=== PATIENT | male | born 2000 | race Caucasian/White ===

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

== ENCOUNTER 2022-02-16 17:51 | Emergency (ER) | payer SELFPAY ==
[~2022-02-16] VITALS: Ht 167.6 cm; Wt 70.4 kg
[2022-02-16 17:51] VITALS: BP 110/57
[2022-02-17] MEDS ORDERED: ONDA4TAB6 PO ×2 (10:44→10:54)
[2022-02-17] MEDS ORDERED: OMEP40CA4 PO ×2 (10:44→10:54)
== END 2022-02-16 20:42 | disposition left against medical advice (07) ==
LOC: M ED 17:51
DX: Z53.21 Procedure and treatment not carried out due to patient leaving prior to being seen by health care provider (principal)

== ENCOUNTER 2022-02-17 06:58 | Emergency (ER) | payer OTHER, SELFPAY ==
[~2022-02-17] VITALS: Ht 167.6 cm; Wt 68.2 kg
[2022-02-17] MEDS ORDERED: ONDANSETRON 4MG/2ML VIAL IV ONE (07:35)
[2022-02-17] MEDS ORDERED: NS 1,000 ML IV ONE (07:35)
[2022-02-17] MEDS ORDERED: PANTOPRAZOLE 40MG VIAL IV ONE (07:35)
[2022-02-17 07:53] LABS: BASO # 0.1 10^3/uL (0.0-0.2); BASO % 0.9 % (0.0-1.0); EOS # 0.1 10^3/uL (0.0-0.5); EOS % 1.6 % (0.0-3.0); HEMATOCRIT 45.1 % (42.0-52.0); HEMOGLOBIN 15.1 g/dl (13.5-17.5); LYMPH # 1.4 10^3/uL (1.5-5.0); LYMPH % 24.5 % (24.0-44.0); MEAN CORPUSCULAR HEMOGLOBIN 31.7 pg (27.0-33.0); MEAN CORPUSCULAR HGB CONC 33.5 g/dl (32.0-36.5); MEAN CORPUSCULAR VOLUME 94.5 fl (80.0-96.0); MONO # 0.5 10^3/uL (0.0-0.8); MONO % 8.5 % (2.0-8.0); NEUTROPHILS # 3.6 10^3/uL (1.5-8.5); NEUTROPHILS % 64.3 % (36.0-66.0); PLATELET COUNT, AUTOMATED 296 10^3/uL (150-450); RED BLOOD COUNT 4.77 10^6/uL (4.30-6.10); WHITE BLOOD COUNT 5.6 10^3/uL (4.0-10.0)
[2022-02-17 08:08] LABS: ALBUMIN 4.2 GM/DL (3.2-5.2); ALT/SGPT 19 U/L (12-78); BILIRUBIN,DIRECT 0.3 MG/DL (0.0-0.2); BLOOD UREA NITROGEN 13 MG/DL (7-18); CALCIUM LEVEL 9.6 MG/DL (8.5-10.1); CARBON DIOXIDE LEVEL 28 MEQ/L (21-32); CHLORIDE LEVEL 109 MEQ/L (98-107); CREATININE FOR GFR 1.13 MG/DL (0.70-1.30); GLUCOSE, FASTING 78 MG/DL (70-100); LIPASE 63 U/L (73-393); POTASSIUM SERUM 4.4 MEQ/L (3.5-5.1); SODIUM LEVEL 142 MEQ/L (136-145); TOTAL PROTEIN 7.8 GM/DL (6.4-8.2)
[2022-02-17] MEDS ORDERED: ISOVUE-370 76% 100ML VIAL As Ordered ONE (08:21)
[2022-02-17] MEDS ORDERED: OMEP40CA4 PO ×2 (10:44→10:54)
[2022-02-17] MEDS ORDERED: ONDA4TAB6 PO ×2 (10:44→10:54)
[2022-02-17 10:53] VITALS: BP 130/89
[2022-02-18] MEDS ORDERED: REGL10TA6 PO (09:49)
[2022-02-18] MEDS ORDERED: CARA1TAB6 PO (09:50)
== END 2022-02-17 10:58 | disposition home or self-care (01) ==
LOC: M ED 06:58
DX: K21.9 Gastro-esophageal reflux disease without esophagitis (principal); Z77.098 Contact with and (suspected) exposure to other hazardous, chiefly nonmedicinal, chemicals
CPT/HCPCS: 74177; 80048; 80076; 83690; 85025; 96361; 96374; 96375; 99284; C9113; J2405; Q9967

== ENCOUNTER 2022-02-18 05:22 | Emergency (ER) | payer OTHER ==
[~2022-02-18] VITALS: Ht 167.6 cm; Wt 67.9 kg
[~2022-02-18 05:22] MED LIST: OMEP40CA4 PO; ONDA4TAB6 PO
[2022-02-18] MEDS ORDERED: NS 1,000 ML IV ONE (06:20)
[2022-02-18] MEDS ORDERED: FAMOTIDINE IV BAG 20 MG in IV 1 EA IV ONE (06:20)
[2022-02-18] MEDS ORDERED: PANTOPRAZOLE 40MG VIAL IV ONE (06:20)
[2022-02-18] MEDS ORDERED: PROMETHAZINE 25MG/ML 1ML VIAL IV ONE (06:20)
[2022-02-18 06:51] LABS: BASO # 0.1 10^3/uL (0.0-0.2); BASO % 0.5 % (0.0-1.0); EOS # 0.1 10^3/uL (0.0-0.5); EOS % 0.6 % (0.0-3.0); HEMOGLOBIN 15.5 g/dl (13.5-17.5); LYMPH # 1.5 10^3/uL (1.5-5.0); LYMPH % 11.7 % (24.0-44.0); MEAN CORPUSCULAR HGB CONC 34.4 g/dl (32.0-36.5); MONO # 0.7 10^3/uL (0.0-0.8); MONO % 5.3 % (2.0-8.0); NEUTROPHILS # 10.4 10^3/uL (1.5-8.5); NEUTROPHILS % 81.7 % (36.0-66.0); PLATELET COUNT, AUTOMATED 311 10^3/uL (150-450); RED BLOOD COUNT 4.84 10^6/uL (4.30-6.10); WHITE BLOOD COUNT 12.8 10^3/uL (4.0-10.0)
[2022-02-18 07:01] LABS: INR 1.06; PROTHROMBIN TIME 14.2 SECONDS (12.7-14.5)
[2022-02-18 07:02] LABS: PARTIAL THROMBOPLASTIN TIME 27.1 SECONDS (25.9-37.0)
[2022-02-18 07:07] LABS: ALBUMIN 4.5 GM/DL (3.2-5.2); ALT/SGPT 25 U/L (12-78); BILIRUBIN,DIRECT 0.3 MG/DL (0.0-0.2); BILIRUBIN,TOTAL 1.1 MG/DL (0.2-1.0); BLOOD UREA NITROGEN 12 MG/DL (7-18); CALCIUM LEVEL 9.8 MG/DL (8.5-10.1); CARBON DIOXIDE LEVEL 27 MEQ/L (21-32); CHLORIDE LEVEL 108 MEQ/L (98-107); CREATININE FOR GFR 1.26 MG/DL (0.70-1.30); GLUCOSE, FASTING 84 MG/DL (70-100); LIPASE 215 U/L (73-393); POTASSIUM SERUM 3.9 MEQ/L (3.5-5.1); SODIUM LEVEL 141 MEQ/L (136-145); TOTAL PROTEIN 8.1 GM/DL (6.4-8.2)
[2022-02-18] MEDS ORDERED: METOCLOPRAMIDE INJ 10MG/2ML VIAL (J2765 PER 1) IV ONE (08:55)
[2022-02-18] MEDS ORDERED: REGL10TA6 PO (09:49)
[2022-02-18] MEDS ORDERED: SUCRALFATE SUSP 1GM/10ML UD PO ONE (09:50)
[2022-02-18] MEDS ORDERED: CARA1TAB6 PO (09:50)
[2022-02-18 10:08] LABS: AMPHETAMINES LEVEL URINE NEGATIVE (NEGATIVE); BARBITURATES URINE NEGATIVE (NEGATIVE); BENZODIAZEPINES URINE NEGATIVE (NEGATIVE); CANNABINOIDS URINE POSITIVE (NEGATIVE); COCAINE METABOLITE URINE NEGATIVE (NEGATIVE); METHADONE URINE NEGATIVE (NEGATIVE); OPIATES URINE NEGATIVE (NEGATIVE); PHENCYCLIDINE URINE NEGATIVE (NEGATIVE)
[2022-02-18 11:09] VITALS: BP 137/70
== END 2022-02-18 11:12 | disposition home or self-care (01) ==
LOC: M ED 05:22
DX: K29.70 Gastritis, unspecified, without bleeding (principal)
CPT/HCPCS: 80048; 80076; 80307; 83690; 85025; 85610; 85730; 86850; 86900; 86901; 93041; 96361; 96365; 99284; C9113; J2550; J2765

== ENCOUNTER 2022-03-13 06:15 | Emergency (ER) | payer OTHER ==
[~2022-03-13] VITALS: Ht 167.6 cm; Wt 61.4 kg
[~2022-03-13 06:15] MED LIST changes: +CARA1TAB6 PO; +REGL10TA6 PO
[2022-03-13] MEDS ORDERED: NS 1,000 ML IV ONE (07:50)
[2022-03-13 08:31] LABS: BASO # 0.1 10^3/uL (0.0-0.2); BASO % 0.8 % (0.0-1.0); EOS % 0.5 % (0.0-3.0); HEMATOCRIT 42.5 % (42.0-52.0); HEMOGLOBIN 14.3 g/dl (13.5-17.5); LYMPH # 1.5 10^3/uL (1.5-5.0); LYMPH % 22.1 % (24.0-44.0); MEAN CORPUSCULAR HEMOGLOBIN 31.4 pg (27.0-33.0); MEAN CORPUSCULAR HGB CONC 33.6 g/dl (32.0-36.5); MEAN CORPUSCULAR VOLUME 93.2 fl (80.0-96.0); MONO # 0.8 10^3/uL (0.0-0.8); NEUTROPHILS # 4.3 10^3/uL (1.5-8.5); NEUTROPHILS % 64.4 % (36.0-66.0); PLATELET COUNT, AUTOMATED 275 10^3/uL (150-450); RED BLOOD COUNT 4.56 10^6/uL (4.30-6.10); WHITE BLOOD COUNT 6.7 10^3/uL (4.0-10.0)
[2022-03-13 08:55] LABS: BLOOD UREA NITROGEN 23 MG/DL (7-18); CALCIUM LEVEL 9.9 MG/DL (8.5-10.1); CARBON DIOXIDE LEVEL 25 MEQ/L (21-32); CHLORIDE LEVEL 106 MEQ/L (98-107); CREATININE FOR GFR 0.95 MG/DL (0.70-1.30); GLUCOSE, FASTING 82 MG/DL (70-100); SODIUM LEVEL 139 MEQ/L (136-145)
[2022-03-13 09:22] VITALS: BP 118/62
== END 2022-03-13 09:31 | disposition home or self-care (01) ==
LOC: M ED 06:15
DX: R11.2 Nausea with vomiting, unspecified (principal)